=== PATIENT | male | born 1995 | race Caucasian/White ===

== ENCOUNTER 2017-02-06 15:02 | Emergency (ER) | payer OTHER ==
[~2017-02-06] VITALS: Ht 172.7 cm; Wt 100.0 kg
[~2017-02-06 15:02] MED LIST: IBUP-1542 PO; LORA-186 PO; PSEU120T51 PO
[2017-02-06 15:21] VITALS: Ht 172.7 cm; Wt 100.0 kg
[2017-02-06] MEDS ORDERED: HYD25 PO (16:59)
[2017-02-06] MEDS ORDERED: LISI10TA2 PO (16:59)
[2017-02-06 17:29] VITALS: BP 131/84; PULSE 83; RESP 20
--- NOTE | 2017-02-06 17:29 | ERD ---
ER Documentation Chief Complaint Date/Time DATE: 02/06/17 TIME: 17:23 Chief Complaint EPIGASTRIC PAIN, HEADACHE CHILLS; HIGH BP HPI 22-year-old man complains of one month of bilateral tinnitus. He denies epigastric or other abdominal pain, and states he's also here to have his hypertension medications refilled. He denies slurred speech, no head trauma, no neck pain, no weakness in his arms or legs, no complaints of chest pain or shortness of breath. Patient also states she has a history of anxiety although denies schizophrenia or other psychiatric problems. ROS All systems reviewed and are negative except as per history of present illness. Medications Home Meds Active Scripts Lisinopril* (Lisinopril*) 10 Mg Tablet, 10 MG PO DAILY, #30 TAB Prov:ANGELINE MUNGUIA MD 02/06/17 Hydrochlorothiazide* (Hydrochlorothiazide*) 25 Mg Tab, 25 MG PO DAILY, #30 TAB Prov:ANGELINE MUNGUIA MD 02/06/17 Pseudoephedrine Hcl (Sudafed 12 Hour) 120 Mg Tablet.sa, 120 MG PO DAILY, #10 Prov:RACHEL OH PA-C 09/19/16 Loratadine* (Claritin*) 10 Mg Tablet, 10 MG PO DAILY, #20 TAB Prov:RACHEL OH PA-C 09/19/16 Ibuprofen* (Motrin*) 600 Mg Tab, 600 MG PO Q6H Y for PAIN AND OR ELEVATED TEMP, #30 TAB Prov:RACHEL OH PA-C 09/19/16 Allergies Allergies: Coded Allergies: cephalexin (Verified Allergy, Unknown, 11/26/14) PMhx/Soc Hypertension, anxiety History of Surgery: Yes (APPENDECTOMY ) Anesthesia Reaction: No Hx Neurological Disorder: No Hx Respiratory Disorders: No Hx Cardiac Disorders: Yes (htn ) Hx Psychiatric Problems: No Hx Miscellaneous Medical Probl: No Hx Alcohol Use: Yes Hx Substance Use: No Hx Tobacco Use: No Smoking Status: Never smoker FmHx Family History: No diabetes Physical Exam Vitals Vital Signs Date Time Temp Pulse Resp B/P Pulse Ox O2 Delivery O2 Flow Rate FiO2 02/06/17 15:21 98.0 65 19 138/96 99 Physical Exam GENERAL: Well-developed, well-nourished, well-hydrated, in no apparent distress , looks nontoxic in appearance HEENT: Moist mucous membranes, bilateral wet cerumen throughout the EACs, pink conjunctiva, no cervical spine tenderness or step-off deformities, no goiter, no jaundice or icterus, extraocular movements intact without pain. No submandibular induration, and no pharyngeal erythema NEURO: Alert and oriented 3, cranial nerves II through XII intact bilaterally, pupils equal round reactive to light, no focal deficits or facial asymmetry, sensation intact distally Strength 5/5 in upper and lower extremities bilaterally CARDIAC: Regular rate and rhythm, no murmurs rubs or gallops LUNGS: Clear bilaterally no wheezing crackles or stridor ABDOMEN: Soft nontender, no guarding, no rigidity, no rebound, no psoas sign no obturator sign. Normoactive bowel sounds SKIN: Warm and dry to touch, no abrasions, contusions, or hematomas, no lacerations, no ecchymosis, no target lesions, and without ulcers EXTREMITIES: No clubbing cyanosis or edema, calves are bilaterally symmetrical, no Homans sign, no popliteal cord sign. Distal pulses equal and bilateral PSYCH: Normal affect without agitation or irritability Procedures/MDM I provided reassurance and told him the follow-up with his PMD of tinnitus continues, I do not suspect any serious underlying central nervous system pathology, and intoxication or medication adverse effect is on the differential although unlikely. Lisinopril and/or hydrochlorothiazide do not have tinnitus is a listed adverse effect. Differential diagnoses considered, included but not limited to Mnire's disease , labyrinthitis, BPPV, acute coronary syndrome, pulmonary embolism, aortic dissection, abdominal aortic aneurysm, sepsis, stroke, meningitis, encephalitis , pneumonia, appendicitis, cholecystitis, bowel obstruction, pyelonephritis, nephrolithiasis, cystitis, as well as metabolic, hematologic, and electrolyte abnormalities. As well as abscess, cellulitis, fractures, and dislocations. Patient feels much better at this time, and vital signs are normal, symptoms have improved. I did give strict instructions to return to the ED if symptoms continue or worsen, patient will otherwise follow-up with primary care physician. Patient understood instructions and agreed to plan. Departure Diagnosis: Primary Impression: Hypertension Hypertension type: essential hypertension Qualified Code: I10 - Essential hypertension Additional Impression: Tinnitus Laterality: bilateral Qualified Code: H93.13 - Tinnitus, bilateral Condition: Good Patient Instructions: Tinnitus (Ringing in the Ears), High Blood Pressure ( Hypertension) ANGELINE MUNGUIA MD Feb 06, 2017 17:29
== END 2017-02-06 17:30 | disposition home or self-care (01) ==
LOC: FTE 15:02
DX: I10 Essential (primary) hypertension (principal)
CPT/HCPCS: 99284

== ENCOUNTER 2017-03-31 14:44 | Emergency (ER) | payer OTHER ==
[~2017-03-31] VITALS: Ht 177.8 cm; Wt 93.0 kg
[~2017-03-31 14:44] MED LIST changes: +HYD25 PO; +LISI10TA2 PO
[2017-03-31 14:47] VITALS: Ht 177.8 cm; Wt 93.0 kg
[2017-03-31 15:50] LABS: URINE BLOOD (Dip) POC Trace-intact (NEGATIVE)
[2017-03-31] MEDS ORDERED: IBUPROFEN 600 MG TAB PO ONE (16:00)
--- NOTE | 2017-03-31 16:28 | RADRPT ---
AMENDMENT: 03/31/2017 4:28:57 PM Dominic Turner D.o PROCEDURE: XR Chest. CLINICAL INDICATION: Cough TECHNIQUE: PA and lateral chest x-ray. COMPARISON: None. FINDINGS: No acute infiltrate, pleural effusion or pneumothorax is identified. The cardiomediastinal silhouet te is unremarkable. The osseous structures are unremarkable. IMPRESSION: 1. No evidence of acute cardiopulmonary process. RPTAT: QQ David Turner Physician Date Time Electronically viewed and signed by David Turner Physician on 03/31/2017 16:28 JR/
[2017-03-31] MEDS ORDERED: PROM5SYR2 PO (17:35)
--- NOTE | 2017-03-31 17:40 | ERD ---
ER Documentation Chief Complaint Date/Time DATE: 03/31/17 TIME: 17:37 Chief Complaint cough , x 1 week HPI This is a 21-year-old male with history of hypertension who presents to the ED with cough for 1 week. Patient also complains of left upper back pain that is produced when coughing. Patient also complains of dysuria without hematuria for 5 days. Denies fever, shortness of breath, nausea, rhinorrhea, night sweats or wheezing. No recent sick contacts or foreign travel. ROS All systems reviewed and are negative except as per history of present illness. Medications Home Meds Active Scripts Fluticasone Propionate (Flonase Allergy Relief) 9.9 Ml [place].susp, 1 SPRAY NASAL DAILY, #1 BOTTLE TO EACH NOSTRIL Prov:CHARLIE WHITLEY 03/31/17 Promethazine HCl/Codeine (Prometh-Codein 6.25-10 mg/5 ml) 5 Ml Syrup, 5 ML PO Q6 Y for COUGH, #75 ML Prov:CHARLIE WHITLEY 03/31/17 Lisinopril* (Lisinopril*) 10 Mg Tablet, 10 MG PO DAILY, #30 TAB Prov:ANGELINE MUNGUIA MD 02/06/17 Hydrochlorothiazide* (Hydrochlorothiazide*) 25 Mg Tab, 25 MG PO DAILY, #30 TAB Prov:ANGELINE MUNGUIA MD 02/06/17 Pseudoephedrine Hcl (Sudafed 12 Hour) 120 Mg Tablet.sa, 120 MG PO DAILY, #10 Prov:RACHEL OH PA-C 09/19/16 Loratadine* (Claritin*) 10 Mg Tablet, 10 MG PO DAILY, #20 TAB Prov:RACHEL OH PA-C 09/19/16 Ibuprofen* (Motrin*) 600 Mg Tab, 600 MG PO Q6H Y for PAIN AND OR ELEVATED TEMP, #30 TAB Prov:RACHEL OH PA-C 09/19/16 Allergies Allergies: Coded Allergies: cephalexin (Verified Allergy, Unknown, 11/26/14) PMhx/Soc History of Surgery: Yes (APPENDECTOMY ) Anesthesia Reaction: No Hx Neurological Disorder: No Hx Respiratory Disorders: No Hx Cardiac Disorders: Yes (htn ) Hx Psychiatric Problems: No Hx Miscellaneous Medical Probl: No Hx Alcohol Use: Yes (10beers/weekend) Hx Substance Use: No Hx Tobacco Use: No Smoking Status: Never smoker Physical Exam Vitals Vital Signs Date Time Temp Pulse Resp B/P Pulse Ox O2 Delivery O2 Flow Rate FiO2 03/31/17 14:47 97.6 90 18 136/79 98 Physical Exam Physical Exam CONST: Well-developed, well-nourished, in no acute distress. Nontoxic in appearance. HEENT: Atraumatic. Normal conjunctiva. EOM intact. TM intact. External ear is normal. Clear oropharnyx without erythema. No uvular deviation. Moist mucous membranes. Supple neck. No meningismus. No submandibular induration. RESP: Clear to auscultation bilaterally. No wheezing. CARDIO: Regular rate and rhythm, no murmurs. ABD: Soft, non tender, non distended. Normal bowel sounds. No McBurney's point tenderness. No guarding or rigidity. No peritoneal signs. SKIN: No petechiae or rashes. BACK: No midline or flank tenderness. EXT: No cyanosis or edema. Distal pulses equal and bilateral. NEURO: Awake and alert, appropriate for age. 5/5 strength in all extremities. Normal speech. Steady gait. Results 24 hrs Laboratory Tests Test 03/31/17 15:51 Bedside Urine pH (LAB) 6.0 Bedside Urine Protein (LAB) Negative Bedside Urine Glucose (UA) Negative Bedside Urine Ketones (LAB) Negative Bedside Urine Blood Trace-intact Bedside Urine Nitrite (LAB) Negative Bedside Urine Leukocyte Esterase (L Negative Current Medications Medications (Trade) Dose Ordered Sig/Elenita Route PRN Reason Start Time Stop Time Status Last Admin Dose Admin Ibuprofen (Motrin) 600 mg ONCE ONCE PO 03/31/17 16:00 03/31/17 16:02 DC 03/31/17 16:14 AMENDMENT: 03/31/2017 4:28:57 PM Dominic Turner D.o PROCEDURE: XR Chest. CLINICAL INDICATION: Cough TECHNIQUE: PA and lateral chest x-ray. COMPARISON: None. FINDINGS: No acute infiltrate, pleural effusion or pneumothorax is identified. The cardiomediastinal silhouette is unremarkable. The osseous structures are unremarkable. IMPRESSION: 1. No evidence of acute cardiopulmonary process. RPTAT: QQ Physician Nisreen Date Time Electronically viewed and signed by Physician Nisreen on 03/31/2017 16:28 Procedures/MDM EMERGENCY DEPARTMENT COURSE/MEDICAL DECISION MAKING This is a 22-year-old male who comes to the emergency room secondary to complaints of cough for 1 week associated with dysuria. Patient also had an episode of headache upon arrival, ibuprofen was given and symptoms have resolved. Due to duration of his cough, I ordered a chest x-ray and results were interpreted by a radiologist. Result is negative for acute cardiopulmonary process. Based on his history and clinical findings, I believe this is a case of upper respiratory infection. I will order antitussive medication upon discharge. My primary diagnosis is upper respiratory infection. Secondary diagnosis is cough. Differential diagnoses considered but not limited to pneumonia, bronchitis, influenza, upper respiratory infection, asthma, pharyngitis, peritonsillar abscess, otitis media, otitis externa. Pt is hemodynamically stable upon reassessment. There are no new complaints during the ED course. The patient was discharged for outpatient management with a prescription for Flonase and promethazine with codeine. The patient was advised to followup with their PMD in 1-2 days and to return to the Emergency Department if there are any new or worsening symptoms. The patient understood and agreed with the diagnosis, treatment and plan. Patient is stable for discharge at this time. Departure Diagnosis: Primary Impression: URI (upper respiratory infection) URI type: unspecified URI Qualified Code: J06.9 - Upper respiratory tract infection, unspecified type Additional Impression: Cough Condition: Stable Patient Instructions: Uri, Viral, No Abx (Adult) Referrals: [facility] YOU HAVE RECEIVED A MEDICAL SCREENING EXAM AND THE RESULTS INDICATE THAT YOU DO NOT HAVE A CONDITION THAT REQUIRES URGENT TREATMENT IN THE EMERGENCY DEPARTMENT. FURTHER EVALUATION AND TREATMENT OF YOUR CONDITION CAN WAIT UNTIL YOU ARE SEEN IN YOUR DOCTORS OFFICE WITHIN THE NEXT 1-2 DAYS. IT IS YOUR RESPONSIBILITY TO MAKE AN APPOINTMENT FOR FOLOW-UP CARE. IF YOU HAVE A PRIMARY DOCTOR --you should call your primary doctor and schedule an appointment IF YOU DO NOT HAVE A PRIMARY DOCTOR YOU CAN CALL OUR PHYSICIAN REFERRAL HOTLINE AT IF YOU CAN NOT AFFORD TO SEE A PHYSICIAN YOU CAN CHOSE FROM THE FOLLOWING [facility] [address] [place] [facility] [address] [place] [facility] [address] [facility] [address] [facility] [address] [facility]. [facility]. [address] [facility]. [facility] YOU HAVE RECEIVED A MEDICAL SCREENING EXAM AND THE RESULTS INDICATE THAT YOU DO NOT HAVE A CONDITION THAT REQUIRES URGENT TREATMENT IN THE EMERGENCY DEPARTMENT. FURTHER EVALUATION AND TREATMENT OF YOUR CONDITION CAN WAIT UNTIL YOU ARE SEEN IN YOUR DOCTORS OFFICE WITHIN THE NEXT 1-2 DAYS. IT IS YOUR RESPONSIBILITY TO MAKE AN APPOINTMENT FOR FOLOW-UP CARE. IF YOU HAVE A PRIMARY DOCTOR --you should call your primary doctor and schedule and appointment IF YOU DO NOT HAVE A PRIMARY DOCTOR YOU CAN CALL OUR PHYSICIAN REFERRAL HOTLINE AT . IF YOU CAN NOT AFFORD TO SEE A PHYSICIAN YOU CAN CHOSE FROM THE FOLLOWING [facility] INSTITUTIONS: [facility] [address] [place] [address] [facility] [address] [place] [address] [facility] [address] [place] [address] Additional Instructions: Increase fluid intake Call your primary care doctor tomorrow for an appointment during the next 1-2 days. Return to the emergency department immediately should you have any new or worsening symptoms. Take all medications as directed. CHARLIE WHITLEY March 31, 2017 17:40
[2017-03-31] MEDS ORDERED: FLUT9.9S NASAL (17:41)
== END 2017-03-31 18:52 | disposition home or self-care (01) ==
LOC: FTE 14:44
DX: J06.9 Acute upper respiratory infection, unspecified (principal); I10 Essential (primary) hypertension
CPT/HCPCS: 71020; 81003; Z7502; Z7610

== ENCOUNTER 2018-04-30 08:53 | Emergency (ER) | END 2018-04-30 09:55 | disposition home or self-care (01) ==

== ENCOUNTER 2018-09-12 14:33 | Emergency (ER) | END 2018-09-12 15:13 | disposition home or self-care (01) ==